=== PATIENT | female | born 1980 | race American Indian/Alaskan Native ===

== ENCOUNTER 2017-07-25 09:12 | Emergency (ER) | payer MEDICAID, OTHER ==
[2017-07-25 09:43] VITALS: BP 114/72; BMI 33.4
[2017-07-25] MEDS ORDERED: Sodium Chloride 0.9% 1,000 ML IV STA (09:50)
[2017-07-25 10:19] LABS: BASO # 0.02 K/mm3 (0.0-2.0); BASO % 0.3 % (0.0-3.0); EOS # 0.1 (0.0-0.7); EOS % 1.9 % (1.5-5.0); GRAN # 3.32 (1.4-6.5); GRAN % 57.5 % (50.0-68.0); HEMATOCRIT 41.8 % (36.0-48.0); LYMPH # 1.8 (1.2-3.4); LYMPH % 31.1 % (22.0-35.0); MEAN CELL VOLUME 89.3 fl (80.0-105.0); MEAN CORPUSCULAR HEMOGLOBIN 29.9 pg (25.0-35.0); MEAN CORPUSCULAR HGB CONC 33.5 g/dl (31.0-37.0); MONO # 0.5 (0.1-0.6); MONO % 9.2 % (1.0-6.0); WHITE BLOOD COUNT 5.8 10^3/ul (4.5-11.0)
[2017-07-25 10:30] LABS: ALB/GLOB RATIO 1.1 (1.1-1.8); ALKALINE PHOSPHATASE 62 U/L (38-126); ALT/SGPT 27 U/L (7-56); AST/SGOT 36 U/L (14-36); BILIRUBIN,TOTAL 0.7 mg/dL (0.2-1.3); BLOOD UREA NITROGEN 16 mg/dL (7-21); CALCIUM 9.7 mg/dL (8.4-10.5); CARBON DIOXIDE 24 mmol/L (21-33); CHLORIDE 108 mmol/L (98-107); GFR AFRICAN-AMERICAN > 60; GLUCOSE,RANDOM 94 mg/dL (70-110); LIPASE 116 U/L (23-300); POTASSIUM 3.9 mmol/L (3.6-5.0); SODIUM 139 mmol/L (132-148); TOTAL PROTEIN 7.7 g/dL (5.8-8.3)
[2017-07-25 10:32] LABS: INR 1.2 (0.93-1.08); PARTIAL THROMBOPLASTIN TIME 26.6 Seconds (25.1-36.5)
[2017-07-25 10:35] LABS: URINE BILIRUBIN SMALL (NEGATIVE); URINE BLOOD NEGATIVE (NEGATIVE); URINE GLUCOSE (UA) NEGATIVE (NEGATIVE); URINE KETONE 15 mg/dL (NEGATIVE); URINE LEUKOCYTE ESTERASE SMALL Leu/uL (NEGATIVE); URINE PROTEIN 30 mg/dL (<30 mg/dL); URINE UROBILINOGEN 0.2 E.U./dL (<1 E.U./dL)
[2017-07-25 10:36] LABS: URINE APPEARANCE CLOUDY (CLEAR); URINE COLOR YELLOW (YELLOW)
--- NOTE | 2017-07-25 10:41 | ED PDOC ---
Arrival/HPI - General Chief Complaint: Abdominal Pain Time Seen by Provider: 07/25/17 09:18 Historian: Patient - History of Present Illness Narrative History of Present Illness (Text): 07/25/17 10:38 37yo female with no PMHx present with complaint of diffuse abdominal pain x 4days. Notes she vomited few days ago, but it resolved and she is currently having abdominal pain. States she took Ibuprofen without relieve. She denies diarrhea, constipation, fever, chills, urinary symptoms, back pain, sick contact , any other complaint. Past Medical History - Provider Review Nursing Documentation Reviewed: Yes - Infectious Disease Hx of Infectious Diseases: None - Tetanus Immunization Tetanus Immunization: Unknown - Past Medical History Past Medical History: No Previous - Psychiatric Hx Substance Use: No - Surgical History Hx Tonsillectomy: Yes Other/Comment: Left Breast Lumpectomy - Anesthesia Hx Anesthesia: Yes Hx Anesthesia Reactions: No Hx Malignant Hyperthermia: No - Suicidal Assessment Feels Threatened In Home Enviroment: No Family/Social History - Physician Review Nursing Documentation Reviewed: Yes Family/Social History: Unknown Family HX Smoking Status: Light Smoker < 10 Cigarettes Daily Hx Alcohol Use: Yes Hx Substance Use: No Hx Substance Use Treatment: No Allergies/Home Meds Allergies/Adverse Reactions: Allergies No Known Allergies Allergy (Verified 07/24/17 21:11) Home Medications: Home Meds Medication Instructions Recorded Confirmed Oxycodone HCl/Acetaminophen 1 each PO BID 07/25/17 07/25/17 [Percocet 10-325 mg Tablet] Review of Systems - Physician Review All systems were reviewed & negative as marked: Yes - Review of Systems Constitutional: Normal Eyes: Normal ENT: Normal Respiratory: Normal Cardiovascular: Normal Gastrointestinal: Abdominal Pain. absent: Constipation, Diarrhea, Nausea, Vomiting, Hematemesis Genitourinary Female: Normal Musculoskeletal: Normal Skin: Normal Neurological: Normal Endocrine: Normal Hemo/Lymphatic: Normal Psychiatric: Normal Physical Exam Vital Signs Reviewed: Yes Vital Signs Temp Pulse Resp BP Pulse Ox 07/25/17 11:51 98.1 F 72 16 114/72 99 07/25/17 09:31 98.0 F 81 17 114/72 98 07/25/17 09:22 98.5 F 80 16 114/72 99 Temperature: Afebrile Blood Pressure: Normal Pulse: Regular Respiratory Rate: Normal Appearance: Positive for: Well-Appearing, Non-Toxic, Comfortable, Other ( Morbidly obese) Pain Distress: None Mental Status: Positive for: Alert and Oriented X 3 - Systems Exam Head: Present: Atraumatic, Normocephalic Pupils: Present: PERRL Extroacular Muscles: Present: EOMI Conjunctiva: Present: Normal Mouth: Present: Moist Mucous Membranes Neck: Present: Normal Range of Motion Respiratory/Chest: Present: Clear to Auscultation, Good Air Exchange. No: Respiratory Distress, Accessory Muscle Use Cardiovascular: Present: Regular Rate and Rhythm, Normal S1, S2. No: Murmurs Abdomen: Present: Tenderness (Diffuse), Normal Bowel Sounds, Guarding (Voluntary ), Other (soft). No: Distention, Peritoneal Signs, Rebound, McBurney's Point Tender, Rovsing's Sign Present Back: Present: Normal Inspection Upper Extremity: Present: Normal Inspection. No: Cyanosis, Edema Lower Extremity: Present: Normal Inspection. No: Edema Neurological: Present: GCS=15, CN II-XII Intact, Speech Normal Skin: Present: Warm, Dry, Normal Color. No: Rashes Psychiatric: Present: Alert, Oriented x 3, Normal Insight, Normal Concentration Medical Decision Making ED Course and Treatment: 07/25/17 19:35 PT's chart was reviewed and it indicates that pt was also seen at [facility] yesterday for same complaint. Lab was unremarkable. He had quamous cells in the UA and not having any UTI symptom. She will not be treated for UTI at this time. Abd/Pelvic CT indicates mild colitis of the duodenum. Result was DW the pt. She was DC home with Flagyl, pepcid and zofran. Advised to follow BRAT diet. Referred to her PMD. [facility]RT ED for any new or worsening symptoms. - Lab Interpretations Lab Results: 07/25/17 10:10 07/25/17 10:10 Lab Results 07/25/17 10:24: Urine Color Yellow, Urine Appearance Cloudy, Urine pH 6.0, Ur Specific [place] >= 1.030, Urine Protein 30 H, Urine Glucose (UA) Negative, Urine Ketones 15 H, Urine Blood Negative, Urine Nitrate Negative, Urine Bilirubin Small H, Urine Urobilinogen 0.2, Ur Leukocyte Esterase Small H, Urine RBC 0 - 2, Urine WBC 10 - 15, Ur Epithelial Cells Many, Urine Bacteria Few 07/25/17 10:10: Sodium 139, Potassium 3.9, Chloride 108 H, Carbon Dioxide 24, Anion Gap 10, BUN 16, Creatinine 0.9, Est GFR ( Amer) > 60, Est GFR (Non- Af Amer) > 60, Random Glucose 94, Calcium 9.7, Total Bilirubin 0.7, AST 36, ALT 27, Alkaline Phosphatase 62, Total Protein 7.7, Albumin 4.1, Globulin 3.6, Albumin/Globulin Ratio 1.1, Lipase 116 07/25/17 10:10: PT 13.2 H, INR 1.20 H, APTT 26.6 07/25/17 10:10: WBC 5.8, RBC 4.68, Hgb 14.0, Hct 41.8, MCV 89.3, MCH 29.9, MCHC 33.5, RDW 13.0, Plt Count 227, MPV 9.0, Gran % 57.5, Lymph % (Auto) 31.1, [place] % (Auto) 9.2 H, Eos % (Auto) 1.9, Baso % (Auto) 0.3, Gran # 3.32, Lymph # 1.8, [place] # 0.5, Eos # 0.1, Baso # 0.02 - RAD Interpretation Radiology Orders: 07/25/17 09:50 ABD & PELVIS W/O PO OR IV CONT [CT] Stat - Medication Orders Current Medication Orders: Discontinued Medications Famotidine (Pepcid) 20 mg IVP STAT STA Stop: 07/25/17 09:51 Last Admin: 07/25/17 10:23 Dose: 20 mg IVP Administration Document 07/25/17 10:23 MS (Rec: 07/25/17 10:23 MS [id number]) Charges for Administration # of IVP Administrations 1 Sodium Chloride (Sodium Chloride 0.9%) 1,000 mls @ 1,000 mls/hr IV .Q1H STA Stop: 07/25/17 10:49 Last Admin: 07/25/17 10:23 Dose: 1,000 mls/hr eMAR Start Stop Document 07/25/17 10:23 MS (Rec: 07/25/17 10:23 MS [id number]) Intravenous Solution Start Date 07/25/17 Start Time 10:23 End Date 07/25/17 End time 11:23 Total Infusion Time 60 Ketorolac Tromethamine (Toradol) 30 mg IVP STAT STA Stop: 07/25/17 09:51 Last Admin: 07/25/17 10:22 Dose: 30 mg MAR Pain Assessment Document 07/25/17 10:22 MS (Rec: 07/25/17 10:23 MS [id number]) Pain Reassessment Is this a pain reassessment? Yes Sleep Is patient sleeping during reassessment? No Presence of Pain Presence of Pain Yes Pain Scale Used Pain Scale Used Numeric Location Pain Location Body Site Abdomen Description Description Intermittent Intensity of Pain at present 3 Pain Behavior Withdrawal from Touch Aggravating Factors Changing Position Alleviating Factors/Management Medication Techniques Alleviating Factors Medication IVP Administration Document 07/25/17 10:22 MS (Rec: 07/25/17 10:23 MS [id number]) Charges for Administration # of IVP Administrations 1 Metronidazole (Flagyl) 500 mg PO STAT STA PRN Reason: Protocol Stop: 07/25/17 11:13 Last Admin: 07/25/17 11:28 Dose: 500 mg Ondansetron HCl (Zofran Inj) 4 mg IVP STAT STA Stop: 07/25/17 09:51 Last Admin: 07/25/17 10:22 Dose: 4 mg IVP Administration Document 07/25/17 10:22 MS (Rec: 07/25/17 10:22 MS [id number]) Charges for Administration # of IVP Administrations 1 Disposition/Present on Arrival - Present on Arrival Any Indicators Present on Arrival: No History of DVT/PE: No History of Uncontrolled Diabetes: No Urinary Catheter: No History of Decub. Ulcer: No History Surgical Site Infection Following: None - Disposition Have Diagnosis and Disposition been Completed?: Yes Diagnosis: Colitis Disposition: HOME/ ROUTINE Disposition Time: 11:15 Patient Plan: Discharge Condition: STABLE Discharge Instructions (ExitCare): Colitis (ED) Additional Instructions: Follow up with your doctor Return to ED for any new or worsening symptoms Prescriptions: Famotidine [Pepcid] 20 mg PO BID #20 tab metroNIDAZOLE [Flagyl] 500 mg PO BID #14 tab Ondansetron ODT [Zofran ODT] 4 mg PO Q6 #8 odt Referrals: Arnie Sanchez DO [Primary Care Provider] - Follow up with primary Forms: [facility] (Uzbek)
[2017-07-25 10:42] LABS: URINE EPITHELIAL CELLS MANY /hpf (0-5)
[2017-07-25 10:43] LABS: URINE BACTERIA FEW (NEG); URINE RBC 0 - 2 /hpf (0-2)
--- NOTE | 2017-07-25 11:06 | CT ---
PROCEDURE: CT Abdomen and Pelvis without intravenous contrast HISTORY: abdominal pain COMPARISON: None. TECHNIQUE: Without contrast. Contrast Dose: Radiation dose: Total exam DLP = 1014 mGy-cm. This CT exam was performed using one or more of the following dose reduction techniques: Automated exposure control, adjustment of the mA and/or kV according to patient size, and/or use of iterative reconstruction technique. FINDINGS: LOWER THORAX: Unremarkable. LIVER: Unremarkable. No gross lesion or ductal dilatation. GALLBLADDER AND BILE DUCTS: Unremarkable. PANCREAS: Unremarkable. No gross lesion or ductal dilatation. SPLEEN: Unremarkable. ADRENALS: Unremarkable. No mass. KIDNEYS AND URETERS: Unremarkable. No hydronephrosis. No solid mass. VASCULATURE: Unremarkable. No aortic aneurysm. BOWEL: Evaluation of the bowel is limited by lack of oral contrast. There is mural thickening in the descending colon. The lumen is not distended. This is suspicious for mild colitis APPENDIX: Unremarkable. Normal appendix. PERITONEUM: Unremarkable. No free fluid. No free air. LYMPH NODES: Unremarkable. No enlarged lymph nodes. BLADDER: Unremarkable. REPRODUCTIVE: Unremarkable. BONES: No acute fracture. OTHER FINDINGS: None. IMPRESSION: Evaluation of the bowel is limited by lack of oral contrast. There is mural thickening in the descending colon. The lumen is not distended. This is suspicious for mild colitis
[2017-07-25 11:53] VITALS: PULSE 72; RESP 16; TEMP 98.1; O2SAT 99
== END 2017-07-25 11:53 | disposition home or self-care (01) ==
LOC: ED 09:12
DX: K52.9 Noninfective gastroenteritis and colitis, unspecified (principal)
CPT/HCPCS: 74176; 80053; 81001; 83690; 85025; 85610; 85730; 87086; 96361; 96374; 96375; 99283; J1885; J2405; J7040

== ENCOUNTER 2017-12-03 13:43 | Emergency (ER) | payer MEDICAID, OTHER ==
[2017-12-03 13:43] VITALS: BMI 34.2
[2017-12-03 14:14] VITALS: TEMP 99
[2017-12-03] MEDS ORDERED: Sodium Chloride 0.9% 1,000 ML IV STA (14:30)
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
[2017-12-03] MEDS ORDERED: Iohexol 240 (50 ml) ONE (14:46)
[2017-12-03 15:10] LABS: ALB/GLOB RATIO 1.1 (1.1-1.8); ALBUMIN 4.1 g/dL (3.0-4.8); ALT/SGPT 23 U/L (7-56); AST/SGOT 37 U/L (14-36); BLOOD UREA NITROGEN 10 mg/dL (7-21); CALCIUM 10.2 mg/dL (8.4-10.5); GFR AFRICAN-AMERICAN > 60; GFR NON-AFRICAN AMERICAN > 60; LIPASE 164 U/L (23-300)
[2017-12-03 15:13] LABS: BASO # 0.02 K/mm3 (0.0-2.0); BASO % 0.3 % (0.0-3.0); EOS % 0.3 % (1.5-5.0); GRAN # 5.11 (1.4-6.5); GRAN % 69.3 % (50.0-68.0); HEMOGLOBIN 14.5 g/dL (12.0-16.0); LYMPH # 1.6 (1.2-3.4); LYMPH % 21.7 % (22.0-35.0); MEAN CELL VOLUME 87.6 fl (80.0-105.0); MEAN CORPUSCULAR HGB CONC 34.2 g/dl (31.0-37.0); MEAN PLATELET VOLUME 9.1 fl (7.0-11.0); MONO # 0.6 (0.1-0.6); MONO % 8.4 % (1.0-6.0); RBC 4.84 10^6/uL (3.5-6.1); RED CELL DISTRIBUTION WIDTH 13.5 % (11.5-14.5); WHITE BLOOD COUNT 7.4 10^3/ul (4.5-11.0)
[2017-12-03 15:27] LABS: URINE BILIRUBIN NEGATIVE (NEGATIVE); URINE BLOOD NEGATIVE (NEGATIVE); URINE GLUCOSE (UA) NEGATIVE (NEGATIVE); URINE LEUKOCYTE ESTERASE NEGATIVE Leu/uL (NEGATIVE); URINE PROTEIN TRACE mg/dL (<30 mg/dL); URINE UROBILINOGEN 0.2 E.U./dL (<1 E.U./dL)
[2017-12-03 15:30] LABS: URINE APPEARANCE CLEAR (CLEAR); URINE COLOR YELLOW (YELLOW)
[2017-12-03 15:38] LABS: HCG,QUALITATIVE URINE NEGATIVE (NEGATIVE)
[2017-12-03 15:42] LABS: INR 1.12 (0.93-1.08); PARTIAL THROMBOPLASTIN TIME 25.1 Seconds (25.1-36.5); PROTHROMBIN TIME 12.8 SECONDS (9.4-12.5)
--- NOTE | 2017-12-03 15:45 | US ---
HISTORY: ruq pain COMPARISON: 07/25/2017 CT abdomen and pelvis TECHNIQUE: Sonographic evaluation of the abdomen. FINDINGS: LIVER: Measures 15.8 cm. Patent portal vein. Portal venous flow: Hepatopetal. Unremarkable echogenicity of the liver parenchyma. No mass. No intrahepatic bile duct dilatation. GALLBLADDER: Unremarkable. No gallstones. COMMON BILE DUCT: Measures 7.7 mm. No stones. No dilatation. PANCREAS: Unremarkable as visualized. No mass. No ductal dilatation. RIGHT KIDNEY: Measures 3.6 x 9.5cm. Normal echogenicity. No calculus, mass, or hydronephrosis. LEFT KIDNEY: Measures 4.4 x 9.7cm. Normal echogenicity. No calculus, mass, or hydronephrosis. SPLEEN: Normal in size and contour. No mass. AORTA: No aneurysmal dilatation. IVC: Unremarkable. OTHER FINDINGS: None. IMPRESSION: Unremarkable abdominal sonogram.
[2017-12-03 15:49] LABS: URINE RBC NEGATIVE /hpf (0-2); URINE WBC NEGATIVE /hpf (0-6)
--- NOTE | 2017-12-03 16:53 | RAD ---
HISTORY: Examine gas pattern COMPARISON: No prior. FINDINGS: BOWEL: Normal. No obstruction. No free air. BONES: Normal. OTHER FINDINGS: None. IMPRESSION: No significant or acute findings to account for/ related to the clinical presentation.
[2017-12-03 17:09] VITALS: RESP 18
[2017-12-03] MEDS ORDERED: Morphine 4 mg/ml ISec IVP STA (17:25)
[2017-12-03] MEDS ORDERED: Iohexol 350 MG/100 ML VIAL ONE (17:28)
[2017-12-03 22:47] VITALS: BP 108/84; PULSE 89; O2SAT 100
--- NOTE | 2017-12-04 08:23 | CT ---
PROCEDURE: CT Abdomen and Pelvis with contrast HISTORY: rt sided abdominal pain COMPARISON: None. TECHNIQUE: Contrast dose: 100 cc of Omni 350 Radiation dose: Total exam DLP = 980 mGy-cm. This CT exam was performed using one or more of the following dose reduction techniques: Automated exposure control, adjustment of the mA and/or kV according to patient size, and/or use of iterative reconstruction technique. FINDINGS: LOWER THORAX: Unremarkable. LIVER: Unremarkable. No gross lesion or ductal dilatation. GALLBLADDER AND BILE DUCTS: Unremarkable. PANCREAS: Unremarkable. No gross lesion or ductal dilatation. SPLEEN: Unremarkable. ADRENALS: Unremarkable. No mass. KIDNEYS AND URETERS: Unremarkable. No hydronephrosis. No solid mass. VASCULATURE: Unremarkable. No aortic aneurysm. BOWEL: There is mural thickening in the descending and sigmoid colon consistent with colitis. APPENDIX: Normal appendix. PERITONEUM: There is minimal free fluid in the pelvis, likely physiologic. LYMPH NODES: Unremarkable. No enlarged lymph nodes. BLADDER: Unremarkable. REPRODUCTIVE: There is a left ovarian cyst with a thickened enhancing rim consistent with recent cyst rupture BONES: No acute fracture. OTHER FINDINGS: The report concurs with the preliminary [facility] report IMPRESSION: Mural thickening in the descending and sigmoid colon consistent with colitis
== END 2017-12-03 21:00 | disposition home or self-care (01) ==
LOC: ED 13:43
DX: K52.9 Noninfective gastroenteritis and colitis, unspecified (principal); R14.0 Abdominal distension (gaseous); F17.210 Nicotine dependence, cigarettes, uncomplicated
CPT/HCPCS: 74019; 74177; 76700; 80053; 81001; 83690; 84703; 85025; 85610; 85730; 96374; 96375; 99284; J1885; J2270; J2405; J7030; Q9966; Q9967